=== PATIENT | female | born 1995 | race Caucasian/White ===

== ENCOUNTER 2018-02-12 22:27 | Emergency (ER) | payer OTHER ==
[2018-02-12] MEDS ORDERED: DIAZEPAM 5 MG TAB PO ONE (22:44)
--- NOTE | 2018-02-12 22:44 | EDPHY ---
General Time Seen by Provider: 02/12/18 22:38 Narrative: CHIEF COMPLAINT: I think a rib popped out HISTORY OF PRESENT ILLNESS: Patient presents private vehicle with complaints a rib popping out of place. She states that she woke this morning with left upper back pain near her scapula. [id number] pain at 1st. Now severe. Has steadily worsened throughout the day. Worse with palpation and movement. She went to a chiropractor with a massage did and did not perform any manipulations. The massage helped but then went away after she left. She has no shortness of breath. No difficulty breathing. Pain is worse palpation movement. Does not radiate. She has no trauma or injury. She has no neuro complaints. No other associated complaints or modifying factors ESTABLISHED ORTHOPEDIST: None REVIEW OF SYSTEMS: Ten systems reviewed and are negative unless otherwise noted in the HPI PAST MEDICAL HISTORY: Attention deficit hyperactivity disorder PAST SURGICAL HISTORY: No surgical history SOCIAL HISTORY: Nonsmoker. Occasional alcohol use. Denies drug use. [employer] student. FAMILY HISTORY: Noncontributory EXAMINATION: General Appearance: Alert, no distress Cardiovascular: Regular rhythm. No murmur. Respiratory: Lungs clear in all graham. No wheezing, rhonchi or crackles. No diminishment. Normal work of breathing. Back: Tenderness to the left subscapular and rhomboid musculature with visible and palpable spasms. No bony tenderness of the thoracic or lumbar spine. No paradoxical movements. Neuro: Light sensory symmetric upper lower extremities. Strength is symmetric upper extremities and lower extremities. Skin: Warm and dry, no rash Extremities: Nontender, no pedal edema Psychiatric: Mood and affect normal DIFFERENTIAL DIAGNOSES: Including but not limited to rib sprain, rib fracture, rib subluxation, muscle spasm MDM: 10:40 p.m. Left upper soft tissue back pain with no midline tenderness. She has no trauma or injury. She is fully neuro intact. There are visible and palpable spasms of the subscapularis, latissimus and trapezius musculature on the left. She has normal vital signs. She has no acute distress. I have ordered rib series and Valium for muscle relaxant. She took ibuprofen within the past 2 hr. No acute distress. Vital signs within normal limits. 11:30 p.m. X-ray is negative for any acute abnormality. I re-evaluated the patient. She has minimal improvement but she is comfortable going home. I do feel it is reasonable. I do not feel there is any likelihood of intrathoracic abnormality. There is no midline tenderness. She is neuro intact vital signs normal per we discussed continuation of muscle relaxant and anti- inflammatories. We discussed massage asymptomatic care. We discussed ED precautions. She is comfortable this plan. She is discharged home stable condition, and her friend is here to drive her home. SUPERVISION: This patient was independently evaluated without direct involvement of or examination by the attending physician. - Diagnostics Imaging Results: Imaging Impressions Ribs w/Chest X-Ray 02/12/18 22:44 Impression: 1. No evidence for left rib fracture. 2. No evidence for acute cardiopulmonary abnormality. - History Smoking Status: Never smoked - Objective Vital Signs: Initial Vital Signs Temperature (C) 98.8 F 02/12/18 22:30 Heart Rate 86 02/12/18 22:30 Respiratory Rate 18 02/12/18 22:30 Blood Pressure 143/87 H 02/12/18 22:30 O2 Sat (%) 98 02/12/18 22:30 O2 Delivery Mode Room Air Allergies/Adverse Reactions: No Known Allergies Allergy (Unverified 02/12/18 22:28) Home Medications: Medication Instructions Recorded Adderall 10 MG (*) 02/12/18 Medications Given: Discontinued Medications Diazepam (Valium) 5 mg PO EDNOW ONE Stop: 02/12/18 22:45 Last Admin: 02/12/18 22:55 Dose: 5 mg Departure - Departure Disposition: Home, Routine, Self-Care Clinical Impression: Muscle spasm Back pain Qualifiers: Back pain location: thoracic back pain Chronicity: acute Back pain laterality: left Qualified Code(s): M54.6 - Pain in thoracic spine Condition: Good Instructions: Cyclobenzaprine (By mouth), Muscle Spasm (ED) Additional Instructions: 1. Flexeril as prescribed as needed 2. Ibuprofen 600 mg every 6 hr as needed 3. Follow up with primary care physician for further care 4. ED precautions as discussed Referrals: GONZALEZ BAILEY [Other] - As per Instructions Physician,Emergency DeptMD [Medical Doctor] - As per Instructions
[2018-02-12] MEDS ORDERED: CYCLOBENZAPRINE 10MG PREPACK#3 BTL TAKEHOME ONE (23:43)
[2018-02-13 00:03] VITALS: BP 126/78
== END 2018-02-13 00:03 | disposition home or self-care (01) ==
DX: M54.6 Pain in thoracic spine (principal); M62.838 Other muscle spasm